=== PATIENT | female | born 1935 | race Caucasian/White ===

== ENCOUNTER 2019-07-16 14:38 | Inpatient (IN) | payer MEDICARE, OTHER ==
[~2019-07-16] VITALS: Ht 167.6 cm; Wt 69.4 kg
[2019-07-16] MEDS ORDERED: HYDR-3980 PO (14:58)
[2019-07-16] MEDS ORDERED: OXYB5TAB16 PO (14:58)
[2019-07-16] MEDS ORDERED: GABA-534 PO (14:58)
[2019-07-16] MEDS ORDERED: ATOR10TA PO (14:58)
[2019-07-16] MEDS ORDERED: LAMO200T10 PO (14:58)
[2019-07-16] MEDS ORDERED: LORA-259 PO (14:58)
[2019-07-16] MEDS ORDERED: DULO20CA19 PO (14:58)
[2019-07-16] MEDS ORDERED: LISI1TAB28 PO (14:58)
--- NOTE | 2019-07-16 15:00 | NUR ---
GPS/RN RECEIVED PT DIREST ADMIT ON 5150 FOR DTS(SUICIDAL IDEATION) FROM [facility]. ADMITTED UNDER DR CARRILLO. ON FACE TO FACE ASSESSMENT NO SI OR HI REPORTED BY PT. PT IS A/X3 AMBULATORY WITH WALKER ABLE TO COMMUNICATE AND STATE HER NEEDS. SKIN CLEAR ON ADMISSION BELONGINGS CHECKED FOR CONTRABAND. PT AND FAMILY HER DAUGHTER (DPOA) REQUESTED DNR/DNA. COPY OF POLST IS IN THE CHART.
[2019-07-16 16:00] VITALS: BP 133/76
[2019-07-16] MEDS ORDERED: BLOOD SUGAR DIAGNOSTIC 1 EACH STRIP IN ONE (16:00)
[2019-07-16] MEDS ORDERED: MAGNESIUM HYDROXIDE 30 ML UDC PO PRN (16:00)
[2019-07-16] MEDS ORDERED: MAG HYDROX/AL HYDROX/SIMETH 30 ML UDC PO PRN (16:00)
--- NOTE | 2019-07-16 16:17 | NUR ---
DR. CARRILLO MADE AWARE OF THE ADMISSION AND GAVE ORDERS.
--- NOTE | 2019-07-16 20:02 | NUR ---
GPS/RN NOTE: AWAKE, ALERT, ORIENTED X3, FEELING COLD, GIVEN BLAMKTES PER HER REQUEST. CAM, COOPERATIVE, AMBULATORY WITH WALKER. NO APPARENT DISTRESS NOTED. WILL CONTINUE TO MONITOR FOR SAFETY AND BEHAVIOR.
[2019-07-16 20:12] VITALS: BP 172/73
[2019-07-16] MEDS: LORAZEPAM 0.5 MG TABLET PO PRN (20:43)
--- NOTE | 2019-07-16 20:44 | NUR ---
GPS/RN NOTE: APPEARS ANXIOUS, UP AND ABOUT IN AND OUT OF HER ROOM, AMBULATORY WITH WALKER. ATIVAN 1 MG TAB PO GIVEN.
[2019-07-16] MEDS ORDERED: GABAPENTIN 300 MG CAPSULE PO SCH (21:00)
[2019-07-16] MEDS: ACETAMINOPHEN 325 MG TABLET PO PRN (21:36)
--- NOTE | 2019-07-16 21:37 | NUR ---
GPS/RN NOTE: C/O BACK PAIN, TYLENOL 650 MG TAB PO GIVEN.
[2019-07-16] MEDS: HYDROCODONE/APAP 10/325MG 1 EA TABLET PO PRN (22:35)
--- NOTE | 2019-07-16 22:35 | NUR ---
GPS/RN NOTE: UP TO NURSE'S STATION C/O CHRONIC BACK PAIN 8/10 ON PAIN SCALE, NORCO 5/325 MG TAB PO GIVEN.
[2019-07-17] MEDS: ACETAMINOPHEN 325 MG TABLET PO PRN ×3 (03:19→19:53)
--- NOTE | 2019-07-17 03:20 | NUR ---
GPS/RN NOTE: AWAKE, UP TO THE NURSE'S STATION C/O BACK PAIN, TYLENOL 650 MG TAB PO GIVEN.
[2019-07-17] MEDS: LORAZEPAM 0.5 MG TABLET PO PRN ×2 (05:08→22:30)
--- NOTE | 2019-07-17 05:09 | NUR ---
GPS/RN NOTE: C/O ANXIETY, LORAZEPAM 1 MG PO GIVEN.
--- NOTE | 2019-07-17 06:46 | NUR ---
GPS/RN NOTE: PATIENT SLEPT FOR 6 HOURS, STATED THAT SHE SLEPT WELL LAST NIGHT. FEELING BETTER, DENIES PAIN AT THIS TIME. MED COMPLIANT. AMBULATORY WITH WALKER.
[2019-07-17 07:40] LABS: ALBUMIN 2.8 g/dL (3.4-5.0); BILIRUBIN,TOTAL 0.4 mg/dL (0.2-1.0); CALCIUM, SERUM 9.2 mg/dL (8.5-10.1); CREATININE 0.9 mg/dL (0.6-1.3); POTASSIUM 3.8 mmol/L (3.5-5.1); TOTAL PROTEIN, SERUM 5.9 g/dL (6.4-8.2)
[2019-07-17 07:42] LABS: CHOLESTEROL 129 mg/dL (<200); HDL CHOLESTEROL 51 mg/dL (40-60); LDL 60 mg/dL (0-99); TRIGLYCERIDES 84 mg/dL (30-150)
[2019-07-17 08:00] VITALS: BP 139/61
[2019-07-17] MEDS: GABAPENTIN 300 MG CAPSULE PO SCH ×4 (08:48→21:11)
[2019-07-17] MEDS: OXYBUTYNIN CHLORIDE 5 MG TABLET PO SCH ×2 (08:48→16:37)
[2019-07-17] MEDS: LISINOPRIL (20MG) 20 MG TABLET PO SCH (08:48)
[2019-07-17] MEDS: HYDROCHLOROTHIAZIDE 25 MG TABLET PO SCH (08:48)
[2019-07-17] MEDS: ATORVASTATIN 10 MG TABLET PO SCH (08:48)
[2019-07-17] MEDS: DULOXETINE HCL 30 MG CAPSULE.DR PO SCH (13:02)
[2019-07-17] MEDS: LamoTRIgine 100 MG TABLET PO SCH (13:02)
[2019-07-17 16:00] VITALS: BP 140/63
--- NOTE | 2019-07-17 18:27 | NUR ---
Patient tolerates 100% of her meals without nausea or vomiting. She is compliant with medication. She wants her Doctor to know she does not take oxybutynin because she worries about her teeth rotting. She says this medication was added to her medication reconciliation at previous facility. Discussion with patient that this was part of her current treatment and she has been prescribed it under the current medication reconciliation. Patient will need further instruction as she has not fully verbalized understanding. Will endorse care to night nurse. Dayne Tatum RN
[2019-07-17 20:08] VITALS: BP 135/58
[2019-07-18] MEDS: HYDROCODONE/APAP 10/325MG 1 EA TABLET PO PRN ×2 (03:12→21:03)
--- NOTE | 2019-07-18 03:12 | NUR ---
PRN NORCO GIVEN PATIENT VERBALIZED LOWER BACK PAIN 03/02, REQUESTED FOR PAIN MEDICINE. NORCO 10/325 MG PO PRN GIVEN ORDERED BY MD. WILL REASSESS FOR EFFECTIVENESS.
[2019-07-18] MEDS: ACETAMINOPHEN 325 MG TABLET PO PRN (05:18)
[2019-07-18 08:00] VITALS: BP 137/60
[2019-07-18] MEDS: LORAZEPAM 0.5 MG TABLET PO PRN (08:15)
--- NOTE | 2019-07-18 08:18 | NUR ---
RN NOTE- PT C/O ANXIETY. PRN ATIVAN GIVEN
[2019-07-18] MEDS: DULOXETINE HCL 30 MG CAPSULE.DR PO SCH (08:30)
[2019-07-18] MEDS: ATORVASTATIN 10 MG TABLET PO SCH (08:30)
[2019-07-18] MEDS: GABAPENTIN 300 MG CAPSULE PO SCH ×4 (08:30→20:47)
[2019-07-18] MEDS: LamoTRIgine 100 MG TABLET PO SCH (08:30)
[2019-07-18] MEDS: LISINOPRIL (20MG) 20 MG TABLET PO SCH (08:30)
[2019-07-18] MEDS: OXYBUTYNIN CHLORIDE 5 MG TABLET PO SCH ×3 (08:30→16:16)
[2019-07-18] MEDS: HYDROCHLOROTHIAZIDE 25 MG TABLET PO SCH (08:35)
--- NOTE | 2019-07-18 10:04 | NUR ---
Home Health Contact: Helder ([phone]) from [facility] called the SW and stated that the pt will require the continuation of home health services once she is discharged. She asked that the SW fax over any new orders to [phone].
[2019-07-18 14:39] LABS: APPEARANCE,URINE SL CLOUDY (CLEAR); BILIRUBIN,URINE NEGATIVE (NEGATIVE); BLOOD, URINE NEGATIVE Ery/uL (NEGATIVE); COLOR,URINE YELLOW (YELLOW); KETONES,URINE NEGATIVE (NEGATIVE); LEUKOCYTE ESTERASE ,URINE TRACE (NEGATIVE); NITRITE, URINE NEGATIVE (NEGATIVE); PROTEIN,URINE NEGATIVE (NEGATIVE); UGLUCOSE NEGATIVE (NEGATIVE); UROBILINOGEN,URINE 0.2 EU/dL (0.2)
[2019-07-18 14:52] LABS: BACTERIA,URINE Few /HPF (None Seen); RBC,URINE 0-2 /HPF (0-2); SQUAMOUS EPITHELIAL CELL,UR Few /HPF (None Seen); WBC,URINE 0-2 /HPF (0-3)
--- NOTE | 2019-07-18 15:06 | NUR ---
SS GROUP NOTE 07/18/19 Goal: Patient will attend group held today from 2-2:30pm in the activities room and participate and/or actively listen to peers and be respectful. Intervention: SW facilitated group session with patients regarding recognizing positive aspects in their life. SW explored: things, people places they adore; one thing they have worked hard to achieve; one thing thats going well right now; two subjects or pursuits youre passionate about; two people you can count on; three things they look forward to. Response: Patient was agreeable to participating in group session. The pt. shared with the group that she is thankful for her children and grandchildren. Pt. shared about her support system including family and best friend. Per pt. The pt. remained calm and cooperative throughout group and was respectful towards her peers as they shared. Plan: Patient will be invited to attend next social welfare clerk group session.
[2019-07-18 16:00] VITALS: BP 143/59
[2019-07-18 20:56] VITALS: BP 157/56
[2019-07-18 21:30] VITALS: BP 133/85
[2019-07-19] MEDS: LORAZEPAM 0.5 MG TABLET PO PRN (02:29)
--- NOTE | 2019-07-19 02:30 | NUR ---
GPS RN NOTES PATIENT VERBALIZED FEELING ANXIOUS AND ASKED FOR MEDICATION TO RELAX HER AND GO BACK TO SLEEP. ATIVAN 1MG GIVEN BY MOUTH. VITAL SIGNS WNL. SAFETY PRECAUTIONS PROVIDED. WILL CONTINUE TO MONITOR.
[2019-07-19] MEDS: ACETAMINOPHEN 325 MG TABLET PO PRN ×2 (05:39→16:44)
[2019-07-19 08:00] VITALS: BP 156/69
[2019-07-19] MEDS: DULOXETINE HCL 30 MG CAPSULE.DR PO SCH (08:38)
[2019-07-19] MEDS: OXYBUTYNIN CHLORIDE 5 MG TABLET PO SCH ×2 (08:39→16:44)
[2019-07-19] MEDS: LISINOPRIL (20MG) 20 MG TABLET PO SCH (08:39)
[2019-07-19] MEDS: LamoTRIgine 100 MG TABLET PO SCH (08:39)
[2019-07-19] MEDS: ATORVASTATIN 10 MG TABLET PO SCH (08:39)
[2019-07-19] MEDS: HYDROCHLOROTHIAZIDE 25 MG TABLET PO SCH (08:39)
[2019-07-19] MEDS: GABAPENTIN 300 MG CAPSULE PO SCH ×4 (08:39→20:11)
[2019-07-19] MEDS: HYDROCODONE/APAP 10/325MG 1 EA TABLET PO PRN (08:43)
--- NOTE | 2019-07-19 10:31 | NUR ---
FAMILY CONTACT: SW contacted pts daughter/CAM Corcoran [phone] and left a voicemail for call back.
--- NOTE | 2019-07-19 10:45 | NUR ---
FAMILY CONTACT: SW spoke with pts daughter/DPJOSEPH Corcoran [phone] regarding treatment and discharge planning. Daughter agrees that pt needs placement as she cannot care for herself and needs assistance with ADL's/ Daughter wishes for pt to be discharged to a Board and Care but is agreeable to short-term SNF placement.
--- NOTE | 2019-07-19 11:39 | NUR ---
INITIAL DISCHARGE PLAN: Per pt she wishes to be placed at a Detention Facility as she states she needs more time to recover before going home. CALLUM spoke with pts daughter/DPJOSEPH Corcoran [phone] who agrees that pt needs placement as she cannot care for herself and needs assistance with ADL's/ Daughter wishes for pt to be discharged to a Board and Care but is agreeable to short-term SNF placement. CALLUM will help form a safe and proper discharge plan in collaboration with .
[2019-07-19 16:00] VITALS: BP 117/59
[2019-07-19 20:00] VITALS: BP 131/58
--- NOTE | 2019-07-19 20:12 | NUR ---
GPS/RN NOTE: C/O CONSTIPATION, MILK OF MAGNESIA 30 ML PO GIVEN.
[2019-07-19 20:16] VITALS: BP 131/58
[2019-07-19] MEDS: ZOLPIDEM TARTRATE 5 MG TABLET PO PRN (21:25)
--- NOTE | 2019-07-19 21:26 | NUR ---
GPS/RN NOTE: AMBIEN 5 MG PO GIVEN, C/O INSOMNIA.
[2019-07-20] MEDS: HYDROCODONE/APAP 10/325MG 1 EA TABLET PO PRN ×2 (01:30→20:04)
--- NOTE | 2019-07-20 01:35 | NUR ---
GPS/RN NOTE: C/O PAIN ON HER BACK AND SHOULDER, NORCO 7/10 ON PAIN SCALE, NORCO 10/325 MG TAB PO GIVEN.
[2019-07-20] MEDS: ACETAMINOPHEN 325 MG TABLET PO PRN ×2 (03:48→11:47)
--- NOTE | 2019-07-20 03:48 | NUR ---
GPS/RN NOTE: C/O OF BACK AND SHOULDER PAIN, TYLENOL 650 MG TAB PO GIVEN.
--- NOTE | 2019-07-20 06:12 | NUR ---
GPS/RN END OF SHIFT NOTE: SLEPT FOR 7 HOURS DURING TH THE NIGHT. NOTED ON AND OFF BACK AND SHOULDER PAIN, MEDICATED WITH RELIEF, NORCO 10/325 MG TAB PO NEEDED. SLEPT WELL. STILL NO BOWEL MOVEMENT AFTER GIVEN THE MILK OF MAGNESIA, ENCOURAGED TO DRINK MORE FLUIDS.
[2019-07-20 08:00] VITALS: BP 149/61
[2019-07-20] MEDS: ATORVASTATIN 10 MG TABLET PO SCH (08:32)
[2019-07-20] MEDS: DULOXETINE HCL 30 MG CAPSULE.DR PO SCH (08:32)
[2019-07-20] MEDS: LamoTRIgine 100 MG TABLET PO SCH (08:33)
[2019-07-20] MEDS: HYDROCHLOROTHIAZIDE 25 MG TABLET PO SCH (08:33)
[2019-07-20] MEDS: LISINOPRIL (20MG) 20 MG TABLET PO SCH (08:34)
[2019-07-20] MEDS: GABAPENTIN 300 MG CAPSULE PO SCH ×4 (08:34→20:03)
--- NOTE | 2019-07-20 08:39 | NUR ---
gps rn note: patient refused her oxybutinin stating she "doesn't take it". well educated and aware of use/purpose and side effects. does not want side effect of dry mouth
[2019-07-20] MEDS: OXYBUTYNIN CHLORIDE 5 MG TABLET PO SCH ×2 (08:47→16:23)
[2019-07-20 16:00] VITALS: BP 137/58
[2019-07-20 20:51] VITALS: BP 123/51
[2019-07-21] MEDS: LORAZEPAM 0.5 MG TABLET PO PRN ×2 (00:16→23:39)
[2019-07-21] MEDS: ACETAMINOPHEN 325 MG TABLET PO PRN ×2 (04:22→16:28)
[2019-07-21 08:00] VITALS: BP 137/67
[2019-07-21] MEDS: HYDROCODONE/APAP 10/325MG 1 EA TABLET PO PRN (08:07)
[2019-07-21] MEDS: HYDROCHLOROTHIAZIDE 25 MG TABLET PO SCH (08:07)
[2019-07-21] MEDS: LISINOPRIL (20MG) 20 MG TABLET PO SCH (08:08)
[2019-07-21] MEDS: LamoTRIgine 100 MG TABLET PO SCH (08:08)
[2019-07-21] MEDS: DULOXETINE HCL 30 MG CAPSULE.DR PO SCH (08:08)
[2019-07-21] MEDS: ATORVASTATIN 10 MG TABLET PO SCH (08:08)
[2019-07-21] MEDS: OXYBUTYNIN CHLORIDE 5 MG TABLET PO SCH ×2 (08:08→16:27)
[2019-07-21] MEDS: GABAPENTIN 300 MG CAPSULE PO SCH ×4 (08:08→21:09)
[2019-07-21 16:00] VITALS: BP 105/68
--- NOTE | 2019-07-21 19:11 | NUR ---
GPS/RN NOTE: LYING IN BED DURING INITIAL ROUNDING, NO APPARENT DISTRESS NOTED AT THIS TIME, DENIES ANY PAIN. A/O X3, AMBULATORY, INDEPENDENT WITH ROUTINE ADL'S. USES WALKER. USES DIAPER/INCONTINENT OF BLADDER.ON FALL PRECAUTION. REMAINS ON DEPRESSED MOOD. CONTINUE TO MONITOR.
[2019-07-21 20:29] VITALS: BP 112/52
[2019-07-21 23:00] VITALS: BP 154/80
[2019-07-22 02:30] VITALS: BP 136/69
[2019-07-22] MEDS: HYDROCODONE/APAP 10/325MG 1 EA TABLET PO PRN ×2 (02:34→09:18)
--- NOTE | 2019-07-22 02:34 | NUR ---
GPS RN NOTE, PATIENT HAS A COMPLAINT OF GENERALIZED PAIN AT 8 OUT 10 ON THE PAIN SCALE AND IS REQUESTING NORCO AT THIS TIME. PATIENT VITAL SIGNS ARE STABLE. GAVE NORCO 10-325 1 TAB PO Q12HR PRN ORDERED. WILL REASSESS FOR PAIN AND I WILL CONTINUE TO MONITOR THIS PATIENT.
[2019-07-22 06:36] LABS: ALBUMIN 2.7 g/dL (3.4-5.0); BILIRUBIN,DIRECT 0.1 mg/dL (0.0-0.2); BILIRUBIN,TOTAL 0.3 mg/dL (0.2-1.0); MAGNESIUM 1.8 mg/dL (1.8-2.4); PHOSPHORUS 3.3 mg/dL (2.5-4.9); TOTAL PROTEIN, SERUM 5.9 g/dL (6.4-8.2)
[2019-07-22 06:43] LABS: BASOPHILS % (AUTO) 0.4 % (0.0-2.0); EOSINOPHILS % (AUTO) 4.9 % (0.0-6.0); HEMATOCRIT 33 % (33-45); HEMOGLOBIN 10.7 g/dL (11.5-14.8); LYMPHOCYTES # (AUTO) 1.5 /CMM (0.8-4.8); LYMPHOCYTES % (AUTO) 16.6 % (20.0-44.0); MEAN CORPUSCULAR HGB CONC 33 g/dl (31.0-36.0); MEAN CORPUSCULAR VOLUME 97 fL (82-100); MONOCYTES # (AUTO) 0.7 /CMM (0.1-1.30); NEUTROPHILS # (AUTO) 6.1 /CMM (1.8-8.9); NEUTROPHILS % (AUTO) 70.1 % (43.0-81.0); PLATELET COUNT (AUTO) 213 /CMM (150-450); RED BLOOD CELL COUNT(AUTO) 3.37 MIL/uL (4.0-5.2); WHITE BLOOD COUNT (AUTO) 8.8 K/uL (4.3-11.0)
--- NOTE | 2019-07-22 07:30 | NUR ---
OPENING LYING IN BED DURING INITIAL ROUNDING, NO APPARENT DISTRESS NOTED AT THIS TIME, DENIES ANY PAIN. A/O X3, AMBULATORY, INDEPENDENT WITH ROUTINE ADL'S. USES WALKER. USES DIAPER/INCONTINENT OF BLADDER.ON FALL PRECAUTION. REMAINS ON DEPRESSED MOOD. CONTINUE TO MONITOR.
[2019-07-22 08:00] VITALS: BP 132/52
[2019-07-22] MEDS: LISINOPRIL (20MG) 20 MG TABLET PO SCH (09:06)
[2019-07-22] MEDS: LamoTRIgine 100 MG TABLET PO SCH (09:06)
[2019-07-22] MEDS: DULOXETINE HCL 30 MG CAPSULE.DR PO SCH (09:06)
[2019-07-22] MEDS: OXYBUTYNIN CHLORIDE 5 MG TABLET PO SCH ×2 (09:07→17:25)
[2019-07-22] MEDS: HYDROCHLOROTHIAZIDE 25 MG TABLET PO SCH (09:07)
[2019-07-22] MEDS: ATORVASTATIN 10 MG TABLET PO SCH (09:07)
[2019-07-22] MEDS: GABAPENTIN 300 MG CAPSULE PO SCH ×4 (09:11→20:44)
[2019-07-22 16:00] VITALS: BP 126/52
[2019-07-22] MEDS: ACETAMINOPHEN 325 MG TABLET PO PRN (17:31)
--- NOTE | 2019-07-22 17:52 | NUR ---
CLOSING PT COOPERATIVE ALL SHIFT KEEP SAFE ALL MEDICATIONS GIVEN WILL GIVE REPORT TO PM SHIFT RN FOR CONTINUITY OF CARE
--- NOTE | 2019-07-22 20:08 | NUR ---
GPS/RN NOTE: AWAKE, ALERT, ORIENTED X3, COMFORTABLE, RESTING IN BED, NO COMPLAINTS MADE AT THIS TIME. SHOWS NO S/S OF ANY DISTRESS AT THIS TIME,. AMBULATORY, USES WALKER. WILL CONTINUE TO MONITOR PATIENT.
[2019-07-22 20:12] VITALS: BP 155/63
[2019-07-22] MEDS: LORAZEPAM 0.5 MG TABLET PO PRN (20:45)
--- NOTE | 2019-07-22 20:47 | NUR ---
GPS/RN NOTE: REQUESTING FOR ATIVAN FOR SLEEP, PATIENT IS ANXIOUS, LORAZEPAM (0.5 MG TAB), 1 MG = 2 TABS PO GIVEN.
[2019-07-22] MEDS: Z GUARD REMEDY 2 OZ OINT TP PRN (22:14)
--- NOTE | 2019-07-22 22:14 | NUR ---
GPS/RN NOTE: Z-GUARD OINTMENT APPLIED TO GROIN AREA, DIAPER WAS CHANGED FOR SOILAGE.
[2019-07-23] MEDS: HYDROCODONE/APAP 10/325MG 1 EA TABLET PO PRN (02:44)
--- NOTE | 2019-07-23 02:45 | NUR ---
GPS/RN NOTE: AWAKE, EXPERIENCING PAIN ON HER RIGHT ARM AND BACK, 7/10 ON PAIN SCALE. HYDROCODONE 10/325 MG TAB PO GIVEN.
--- NOTE | 2019-07-23 06:02 | NUR ---
SPOKE TO NURSE JIMENEZ IN REGARDS TO MRCP ORDER, PATIENT HAS TO BE NPO 4 HRS BEFORE THE EXAM. BUT THE PATIENT IS ON HOLD UNABLE TO DO MRCP. UNTIL THE HOLD IS RELEASE.
--- NOTE | 2019-07-23 06:06 | NUR ---
GPS/RN NOTE: X-RAY DEPT. CALLED AND NOTIFIED RN THAT PATIENT MUST BE OFF THE 5250 HOLD BEFORE PROCEDURE CAN BE DONE AND NPO PRIOR PROCEDURE.
--- NOTE | 2019-07-23 06:17 | NUR ---
GPS/RN NOTE; CALLED MRI DEPT, VERIFIED WITH CHER, ABOUT MCRP FOR TODAY. HE SAID THAT PATIENT MUST BE NPO 4 HOURS PRIOR THE PROCEDURE AND SHOULD BE OFF THE 5250 HOLD IN ORDER TO DO THE PROCEDURE.
--- NOTE | 2019-07-23 06:52 | NUR ---
GPS/RN END OF SHIFT NOTE: SLEPT FOR 8 HOURS, CALM, COOPERATIVE. FOR MRCP TODAY. CALLED MRI DEPT, SPOKE WITH CHER, HE MENTIONED THAT PATIENT NEEDS OF HER 5250 HOLD IN ORDER TO DO THE PROCEDURE, NPO 4 HOURS PRIOR THE PROCEDURE, NEED MRI QUESTIONNAIRES, PLACED INSIDE PATIENT'S CHART. WILL NOTIFY MD TODAY. ENDORSED TO DAY NURSE. WILL CONTINUE TO MONITOR.
[2019-07-23 08:00] VITALS: BP 125/57
--- NOTE | 2019-07-23 08:44 | NUR ---
OPENING LYING IN BED DURING INITIAL ROUNDING, NO APPARENT DISTRESS NOTED AT THIS TIME, DENIES ANY PAIN. A/O X3, AMBULATORY, INDEPENDENT WITH ROUTINE ADL'S. USES WALKER. USES DIAPER/INCONTINENT OF BLADDER.ON FALL PRECAUTION. REMAINS ON DEPRESSED MOOD. CONTINUE TO MONITOR. MRI QUESTIONERE FILLED OUT SPOKE WITH [facility] SCAN SCHEDULED FOR 1300. PT CAN GO WITH SITTER.
[2019-07-23] MEDS: ACETAMINOPHEN 325 MG TABLET PO PRN (09:00)
[2019-07-23] MEDS: GABAPENTIN 300 MG CAPSULE PO SCH ×4 (09:00→21:26)
[2019-07-23] MEDS: DULOXETINE HCL 30 MG CAPSULE.DR PO SCH (09:00)
[2019-07-23] MEDS: ATORVASTATIN 10 MG TABLET PO SCH (09:00)
[2019-07-23] MEDS: LamoTRIgine 100 MG TABLET PO SCH (09:00)
[2019-07-23] MEDS: HYDROCHLOROTHIAZIDE 25 MG TABLET PO SCH (09:01)
[2019-07-23] MEDS: LISINOPRIL (20MG) 20 MG TABLET PO SCH (09:01)
[2019-07-23] MEDS: OXYBUTYNIN CHLORIDE 5 MG TABLET PO SCH ×2 (09:04→16:39)
--- NOTE | 2019-07-23 13:00 | NUR ---
pt taken to mri with justinter
[2019-07-23 16:00] VITALS: BP 139/57
--- NOTE | 2019-07-23 17:45 | NUR ---
cLOSING PT BACK FROM MRI AROUND 1340 TOLERATED WELL GIVEN MEAL TRAY PT KEPT SAFE ALL MEDICATIONS GIVEN WILL ENDORSE CARE TO PM SHIFT RN FOR CONTINUITY OF CARE
[2019-07-23 20:21] VITALS: BP_SYST 135; BP_SYST 165; BP_DIAS 82; BP_DIAS 99
[2019-07-23] MEDS: ZOLPIDEM TARTRATE 5 MG TABLET PO PRN (22:01)
[2019-07-24] MEDS: HYDROCODONE/APAP 10/325MG 1 EA TABLET PO PRN ×2 (01:14→18:19)
[2019-07-24 09:19] VITALS: BP 145/67
[2019-07-24] MEDS: GABAPENTIN 300 MG CAPSULE PO SCH ×4 (09:54→21:15)
[2019-07-24] MEDS: HYDROCHLOROTHIAZIDE 25 MG TABLET PO SCH (09:54)
[2019-07-24] MEDS: ATORVASTATIN 10 MG TABLET PO SCH (09:54)
[2019-07-24] MEDS: LISINOPRIL (20MG) 20 MG TABLET PO SCH (09:54)
[2019-07-24] MEDS: DULOXETINE HCL 30 MG CAPSULE.DR PO SCH (09:54)
[2019-07-24] MEDS: LamoTRIgine 100 MG TABLET PO SCH (09:55)
[2019-07-24] MEDS: OXYBUTYNIN CHLORIDE 5 MG TABLET PO SCH ×2 (09:55→18:19)
[2019-07-24] MEDS: ACETAMINOPHEN 325 MG TABLET PO PRN (09:56)
[2019-07-24 16:00] VITALS: BP 127/55
[2019-07-24 20:04] VITALS: BP 113/63
[2019-07-24 20:07] VITALS: BP 106/62
[2019-07-25 08:00] VITALS: BP 135/60
[2019-07-25] MEDS: LamoTRIgine 100 MG TABLET PO SCH (08:28)
[2019-07-25] MEDS: ATORVASTATIN 10 MG TABLET PO SCH (08:28)
[2019-07-25] MEDS: DULOXETINE HCL 30 MG CAPSULE.DR PO SCH (08:28)
[2019-07-25] MEDS: OXYBUTYNIN CHLORIDE 5 MG TABLET PO SCH ×2 (08:28→17:05)
[2019-07-25] MEDS: GABAPENTIN 300 MG CAPSULE PO SCH ×4 (08:28→20:59)
[2019-07-25] MEDS: HYDROCODONE/APAP 10/325MG 1 EA TABLET PO PRN (08:28)
[2019-07-25] MEDS: LISINOPRIL (20MG) 20 MG TABLET PO SCH (08:28)
[2019-07-25] MEDS: HYDROCHLOROTHIAZIDE 25 MG TABLET PO SCH (08:29)
--- NOTE | 2019-07-25 11:16 | NUR ---
FAMILY CONTACT: SW contacted pts daughter/CAM Corcoran [phone] to discuss pts discharge back home. SW informed daughter that pt wishes to return home and daughter stated that pt is not safe at home as pt lives alone and has no help or support and pt is unable to properly care for herself. Daughter stated that pt needs to be discharged to a SNF. SW stated that she will refer pt to a SNF and move forward with discharge to a SNF. Daughter agrees with discharge plan.
--- NOTE | 2019-07-25 11:34 | NUR ---
SNF REFERRAL: CALLUM faxed SNF referral to [facility] Address: [address] [place] [address] for review.
--- NOTE | 2019-07-25 13:05 | NUR ---
SNF: SW received a call from diana Barreto at [facility] Address: [place] [address] stating that pt has been accepted the facility contingent on SI clearance.
--- NOTE | 2019-07-25 15:10 | NUR ---
GROUP NOTE: SW encouraged pt to attend group therapy discussing "discharge planning." Pt stated that she wanted to remain in her bed but wished to be discharged to her home. SW provided intervention and discussed discharged to SNF as pts daughter who is her DPOA refused for pt to be discharged back home as she stated that it is not safe for pt to return home. Pt understood and agreed with her discharge as she stated that her daughter wants the best for her.
[2019-07-25 16:00] VITALS: BP 134/55
[2019-07-25 20:26] VITALS: BP_SYST 125; BP_SYST 128; BP_DIAS 52; BP_DIAS 61
--- NOTE | 2019-07-25 20:47 | NUR ---
RN NOTES: PT. ALLOWED TO SKIN ASSESSMENT AND PICTURES AT THIS TIME , SKIN ASSESSMENT DONE , PICTURES TAKEN AND PLACED IN THE CHART , WILL CONTINUITY WITH CARE.
[2019-07-26] MEDS: ACETAMINOPHEN 325 MG TABLET PO PRN (01:14)
[2019-07-26] MEDS: Z GUARD REMEDY 2 OZ OINT TP PRN (07:16)
[2019-07-26 08:00] VITALS: BP 157/64
[2019-07-26] MEDS: DULOXETINE HCL 30 MG CAPSULE.DR PO SCH (09:15)
[2019-07-26] MEDS: ATORVASTATIN 10 MG TABLET PO SCH (09:15)
[2019-07-26] MEDS: GABAPENTIN 300 MG CAPSULE PO SCH ×4 (09:15→21:28)
[2019-07-26] MEDS: OXYBUTYNIN CHLORIDE 5 MG TABLET PO SCH ×2 (09:15→16:08)
[2019-07-26] MEDS: HYDROCHLOROTHIAZIDE 25 MG TABLET PO SCH (09:16)
[2019-07-26] MEDS: LamoTRIgine 100 MG TABLET PO SCH (09:16)
[2019-07-26] MEDS: LISINOPRIL (20MG) 20 MG TABLET PO SCH (09:16)
--- NOTE | 2019-07-26 11:02 | NUR ---
FAMILY CONTACT: SW contacted pts daughter/CAM Corcoran [phone] and left a voicemail informing her pt will be discharged on 07/28/19 to [facility].
--- NOTE | 2019-07-26 15:12 | NUR ---
FAMILY CONTACT: SW received a call from pts daughter/CAM Corcoran [phone] stating that she agrees with pts discharge on 07/28/19 to [facility].
--- NOTE | 2019-07-26 16:10 | NUR ---
Group Note: SW encouraged pt to attend group therapy on 07/26/19 at 12pm discussing discharge planning. Pt stated that she was feeling cold and therefore did not want to leave her room. Pt stated that she would like to be discharged back to her home but she understands that her daughter is requesting that she be discharged to a facility first. Pt stated that she understands that would be safer than being discharged home at this time and therefore she will agree to the plan.
[2019-07-26 16:15] VITALS: BP 139/67
--- NOTE | 2019-07-26 18:22 | NUR ---
GPS/RN CLOSING NOTES PATIENT CONTINUES TO REMAIN IN STABLE CONDITION THROUGHOUT THE SHIFT. PROVIDED COMFORT AND SAFETY AT ALL TIMES. COOPERATIVE WITH NO SUICIDAL IDEATION AT THIS TIME. ALL NEEDS ANTICIPATED. CALL LIGHT WITHIN REACHED. BED LOCKED AND IN LOWEST POSITION. WILL CONTINUE TO MONITOR CLOSELY. ENDORSED TO PM NURSE FOR JAMA.
[2019-07-26 19:54] VITALS: BP 125/50
[2019-07-26] MEDS: HYDROCODONE/APAP 10/325MG 1 EA TABLET PO PRN (22:56)
[2019-07-27] MEDS: LORAZEPAM 0.5 MG TABLET PO PRN (04:18)
[2019-07-27 08:00] VITALS: BP 117/52
[2019-07-27] MEDS: DULOXETINE HCL 30 MG CAPSULE.DR PO SCH (08:16)
[2019-07-27] MEDS: OXYBUTYNIN CHLORIDE 5 MG TABLET PO SCH ×2 (08:17→16:48)
[2019-07-27] MEDS: LISINOPRIL (20MG) 20 MG TABLET PO SCH (08:17)
[2019-07-27] MEDS: ATORVASTATIN 10 MG TABLET PO SCH (08:17)
[2019-07-27] MEDS: LamoTRIgine 100 MG TABLET PO SCH (08:17)
[2019-07-27] MEDS: GABAPENTIN 300 MG CAPSULE PO SCH ×4 (08:17→21:20)
[2019-07-27] MEDS: HYDROCHLOROTHIAZIDE 25 MG TABLET PO SCH (08:24)
--- NOTE | 2019-07-27 15:35 | NUR ---
GROUP NOTE: SW encouraged pt to attend group therapy on this present day discussing, "reality testing." Pt attended group and stated that she understands that she cannot stay home alone and needs extra help and knows that going to a SNF is best for her at this time. Pt also stated that she wishes for her daughter to find a board and care or assisted living in [place]. Pt also reports feeling a little sad that she will not be returning home but knows that she will be better off at the SNF. Pts mood appeared depressed with sad affect but was engaged in conversation and maintained appropriate eye contact.
[2019-07-27 16:00] VITALS: BP 127/51
[2019-07-27 20:15] VITALS: BP 120/57
[2019-07-28] MEDS: HYDROCODONE/APAP 10/325MG 1 EA TABLET PO PRN (02:23)
[2019-07-28] MEDS: LORAZEPAM 0.5 MG TABLET PO PRN (04:49)
--- NOTE | 2019-07-28 04:50 | NUR ---
GPS RN NOTE PRN ATIVAN 1 MG GIVEN FOR ANXIETY MANIFESTED BY INABILITY TO STAY IN BED. WILL CONT TO MONITOR.
[2019-07-28 08:00] VITALS: BP 112/60
[2019-07-28] MEDS: GABAPENTIN 300 MG CAPSULE PO SCH ×2 (08:28→13:13)
[2019-07-28] MEDS: HYDROCHLOROTHIAZIDE 25 MG TABLET PO SCH (08:28)
[2019-07-28] MEDS: OXYBUTYNIN CHLORIDE 5 MG TABLET PO SCH (08:28)
[2019-07-28] MEDS: LamoTRIgine 100 MG TABLET PO SCH (08:28)
[2019-07-28] MEDS: DULOXETINE HCL 30 MG CAPSULE.DR PO SCH (08:28)
[2019-07-28] MEDS: ATORVASTATIN 10 MG TABLET PO SCH (08:28)
[2019-07-28 08:32] VITALS: BP 112/60
[2019-07-28] MEDS: LISINOPRIL (20MG) 20 MG TABLET PO SCH (08:32)
--- NOTE | 2019-07-28 09:14 | NUR ---
DR. CARRILLO GAVE AN ORDER TO D/C HOLD AND D/C TO [facility] TO CONTINUE SAME MEDS INCLUDING PRN AND TO FOLLOW UP WITH PSYCH AND MEDICAL DOCTORS. DR. MARTINEZ MADE AWARE OF THE DISCHARGE AND RECONCILED THE MEDS.
--- NOTE | 2019-07-28 10:25 | NUR ---
DISCHARGE NOTE: Pt will be discharged at 3:30pm via [facility] to [facility] ([facility]) located at [address] [place] [id number] . Pts daughter/DPJOSEPH Corcoran [phone] has been notified and agrees with discharge plan. Pt denied visual/auditory hallucinations and denied suicidal/homicidal ideation. Pts mood is euthymic with congruent affect. Pt will be under the care of Psychiatrist: Dr. Melonie Kwok [address], [place] [address] and General Pediatrician: Dr. Howard located at [address] [place] [address] [address], [place] [address]; . The multidisciplinary exit care form was done, printed, signed, and given to the patient.
--- NOTE | 2019-07-28 11:27 | NUR ---
FAMILY CONTACT: SW received a call from pts daughter Karolina [phone] who states she is also pts DPOA and stated that she feels discharging pt to a SNF will only make pts depression worse. SW explained that discharge plan has been discussed with pts daughter Jewell. Karolina stated that there is family conflict between the siblings and stated that Jewell does not speak to her. Daughter understood and stated that once pt is discharged to a SNF she will coordinate with SNF to have pt be discharged to her home as she states she lives close to pts home and wishes for pt to move in with her.
--- NOTE | 2019-07-28 16:00 | NUR ---
GPS/RN PT DISCHARGED TO [facility] VIA AMBULANCE. REPORT GIVEN TO YULIANA DURHAM AT THE FACILITY. PROPERTY RETURNED, ID BAND REMOVED, EXIT CARE INSTRUCTIONS GIVEN AND UNDERSTOOD. PT REFUSED PICTURES ON DISCHARGE. VSS NO SI OR HI AT THE TIME OF DISCHARGE. MED RECON AND PRESCRIPTIONS PROVIDED.
== END 2019-07-28 16:00 | DRG 885 ==
LOC: GPS 14:38
PROVIDERS: ADMIT Psychiatry & Neurology Psychiatry; ATTEND Nurse Practitioner Acute Care
DX: F31.81 Bipolar II disorder (principal); F23 Brief psychotic disorder; R45.851 Suicidal ideations; I10 Essential (primary) hypertension; M19.90 Unspecified osteoarthritis, unspecified site; Z96.653 Presence of artificial knee joint, bilateral; Z66 Do not resuscitate; Z88.0 Allergy status to penicillin; Z88.2 Allergy status to sulfonamides
CPT/HCPCS: 36415; 74181-TC; 76700-TC; 80053-TC; 80061-TC; 80076-TC; 81000-TC; 83735-TC; 84100-TC; 85025-TC; 87081-TC